=== PATIENT | female | born 1945 | race Caucasian/White ===

== ENCOUNTER 2023-01-07 03:16 | Emergency (ER) | payer MEDICARE, BC ==
[~2023-01-07] VITALS: Ht 162.6 cm; Wt 74.5 kg
[~2023-01-07 03:16] MED LIST: ELIMITE60 GM TOP; MEDDOSEPAK PO
[2023-01-07] MEDS ORDERED: ULTRAM50 MG PO (04:32)
[2023-01-07 05:23] VITALS: BP 124/50
== END 2023-01-07 05:25 | disposition home or self-care (01) ==
LOC: ED 03:16
DX: S93.402A Sprain of unspecified ligament of left ankle, initial encounter (principal); I10 Essential (primary) hypertension; X50.0XXA Overexertion from strenuous movement or load, initial encounter; Y92.009 Unspecified place in unspecified non-institutional (private) residence as the place of occurrence of the external cause